=== PATIENT | female | born 1990 | race Two or more races ===

== ENCOUNTER 2019-05-10 12:33 | Emergency (ER) | payer OTHER ==
[~2019-05-10] VITALS: Ht 152.4 cm; Wt 86.2 kg
[~2019-05-10 12:33] MED LIST: IRON1 TA1 PO; PRENATAL1 TAB PO; PROGESTERONE50 MG/M1 IM
== END 2019-05-10 19:06 | disposition home or self-care (01) ==
LOC: ER 12:33
DX: N39.8 Other specified disorders of urinary system (principal)

== ENCOUNTER 2019-08-19 16:34 | Inpatient (IN) | payer OTHER ==
[~2019-08-19] VITALS: Ht 152.4 cm; Wt 88.5 kg
[2019-08-20] MEDS ORDERED: METHYLDOPA500 MG PO (09:53)
[2019-08-25] MEDS ORDERED: METOCLOPRAMIDE10 MG PO (09:50)
[2019-08-25] MEDS ORDERED: PROTONIX40 MG PO (09:50)
[2019-09-13] MEDS ORDERED: ALDOMET250 MG/5 M (06:35)
[2019-09-13] MEDS ORDERED: REGLAN5 MG/5 ML (06:35)
[2019-09-13] MEDS ORDERED: PROTONIX20 MG (06:35)
[2019-09-13] MEDS ORDERED: PRENATA CHEWAB1 EACH (06:36)
== END 2019-08-25 10:16 | disposition home or self-care (01) | DRG 833 ==
LOC: ER 16:34 → OB/GYN 22:19
PROVIDERS: ADMIT Obstetrics & Gynecology; ATTEND Obstetrics & Gynecology
PROC: BW40ZZZ Ultrasonography of Abdomen (ICD-10-PCS; 2019-08-19)
PROC: BW30ZZZ Magnetic Resonance Imaging (MRI) of Abdomen (ICD-10-PCS; principal; 2019-08-21)
DX: O26.891 Other specified pregnancy related conditions, first trimester (principal); K21.9 Gastro-esophageal reflux disease without esophagitis; R10.11 Right upper quadrant pain; Z3A.11 11 weeks gestation of pregnancy
CPT/HCPCS: 74185

== ENCOUNTER 2019-09-13 09:35 | Day surgery (SDC) | payer OTHER ==
[~2019-09-13] VITALS: Ht 152.4 cm; Wt 86.2 kg
[~2019-09-13 09:35] MED LIST changes: +ALDOMET250 MG/5 M; +METHYLDOPA500 MG PO; +METOCLOPRAMIDE10 MG PO; +PRENATA CHEWAB1 EACH; +PROTONIX20 MG; +PROTONIX40 MG PO; +REGLAN5 MG/5 ML
[2019-09-13] MEDS ORDERED: MORGIDOX100 MG PO (11:21)
[2019-09-13] MEDS ORDERED: NAPROXEN500 MG PO (11:22)
[2019-09-13] MEDS ORDERED: MAXFE CAPLET1 EACH PO (11:48)
== END 2019-09-13 13:00 | disposition home or self-care (01) ==
LOC: O/R 09:35 → CIR.AMB 09:35 → ER 09:35 → CIR.AMB 13:00 → O/R 14:00
PROVIDERS: ATTEND General Practice
DX: O03.4 Incomplete spontaneous abortion without complication (principal)

== ENCOUNTER → 2020-01-09 10:30 | Outpatient (CLI) | payer OTHER ==
[~2020-01-09 10:30] MED LIST changes: +MAXFE CAPLET1 EACH PO; +MORGIDOX100 MG PO; +NAPROXEN500 MG PO
== END | disposition home or self-care (01) ==
LOC: LAB 10:30
PROVIDERS: ATTEND Internal Medicine Hematology & Oncology
DX: D50.8 Other iron deficiency anemias (principal); D50.0 Iron deficiency anemia secondary to blood loss (chronic); I10 Essential (primary) hypertension; D68.8 Other specified coagulation defects; D68.0 Von Willebrand disease; D47.3 Essential (hemorrhagic) thrombocythemia

== ENCOUNTER 2020-03-13 21:20 | Emergency (ER) | payer OTHER ==
[~2020-03-13] VITALS: Ht 152.4 cm; Wt 86.2 kg
[2020-03-13] MEDS ORDERED: AMLODIPINE BESYL5 MG PO (21:41)
== END 2020-03-14 03:41 | disposition home or self-care (01) ==
LOC: ER 21:20
DX: O20.8 Other hemorrhage in early pregnancy (principal); Z3A.01 Less than 8 weeks gestation of pregnancy

== ENCOUNTER 2020-05-10 19:32 | Emergency (ER) | payer OTHER ==
[~2020-05-10] VITALS: Ht 152.4 cm; Wt 89.4 kg
[~2020-05-10 19:32] MED LIST changes: +AMLODIPINE BESYL5 MG PO
[2020-05-10] MEDS ORDERED: DESMOPRESS10 MCG/0.2 (19:54)
== END 2020-05-10 22:04 | disposition home or self-care (01) ==
LOC: ER 19:32
DX: R00.2 Palpitations (principal)

== ENCOUNTER 2020-09-03 21:45 | Emergency (ER) | payer OTHER ==
[~2020-09-03] VITALS: Ht 152.4 cm; Wt 81.6 kg
[~2020-09-03 21:45] MED LIST changes: +DESMOPRESS10 MCG/0.2
[2020-09-03] MEDS ORDERED: PRENATALES (22:16)
== END 2020-09-04 01:01 | disposition home or self-care (01) ==
LOC: ER 21:45
DX: O23.41 Unspecified infection of urinary tract in pregnancy, first trimester (principal); Z3A.01 Less than 8 weeks gestation of pregnancy

== ENCOUNTER 2020-10-03 16:29 | Emergency (ER) | payer OTHER ==
[~2020-10-03] VITALS: Ht 152.4 cm; Wt 79.4 kg
[~2020-10-03 16:29] MED LIST changes: +PRENATALES
[2020-10-03] MEDS ORDERED: PEPCID AC20 MG (16:56)
[2020-10-03] MEDS ORDERED: ALDOMET250 MG/5 M (16:56)
[2020-10-03] MEDS ORDERED: DHA100 MG (16:56)
== END 2020-10-03 23:57 | disposition home or self-care (01) ==
LOC: ER 16:29
DX: B34.9 Viral infection, unspecified (principal); Z11.52 Encounter for screening for COVID-19

== ENCOUNTER 2020-11-23 08:37 | Outpatient (CLI) | payer OTHER ==
[~2020-11-23 08:37] MED LIST changes: +DHA100 MG; +PEPCID AC20 MG
== END 2020-11-23 10:00 | disposition home or self-care (01) ==
LOC: PRENATAL 08:37
PROVIDERS: ATTEND Obstetrics & Gynecology Maternal & Fetal Medicine
DX: O26.842 Uterine size-date discrepancy, second trimester (principal); O10.012 Pre-existing essential hypertension complicating pregnancy, second trimester; O99.342 Other mental disorders complicating pregnancy, second trimester; O34.42 Maternal care for other abnormalities of cervix, second trimester; Z36.89 Encounter for other specified antenatal screening; Z3A.15 15 weeks gestation of pregnancy

== ENCOUNTER 2020-11-28 23:48 | Emergency (ER) | payer OTHER ==
[~2020-11-28] VITALS: Ht 152.4 cm; Wt 81.6 kg
[2020-11-28] MEDS ORDERED: NIFEDIPINE20 MG PO (23:53)
[2020-11-29] MEDS ORDERED: ACETAMINOPHEN650 M2 PO (08:01)
== END 2020-11-29 08:28 | disposition home or self-care (01) ==
LOC: ER 23:48
DX: N93.9 Abnormal uterine and vaginal bleeding, unspecified (principal); Z3A.22 22 weeks gestation of pregnancy

== ENCOUNTER 2020-12-08 14:28 | Outpatient (CLI) | payer OTHER ==
[~2020-12-08 14:28] MED LIST changes: +ACETAMINOPHEN650 M2 PO; +NIFEDIPINE20 MG PO
== END 2020-12-08 15:41 | disposition home or self-care (01) ==
LOC: PRENATAL 14:28
PROVIDERS: ATTEND Obstetrics & Gynecology Maternal & Fetal Medicine
DX: O26.872 Cervical shortening, second trimester (principal); O10.012 Pre-existing essential hypertension complicating pregnancy, second trimester; O99.342 Other mental disorders complicating pregnancy, second trimester; Z36.89 Encounter for other specified antenatal screening; Z3A.18 18 weeks gestation of pregnancy

== ENCOUNTER 2020-12-16 22:40 | Inpatient (IN) | payer OTHER ==
[~2020-12-16] VITALS: Ht 152.4 cm; Wt 81.6 kg
[2020-12-17] MEDS ORDERED: CHILDREN'S ASPI81 MG (00:24)
[2020-12-17] MEDS ORDERED: ADALAT CC30 MG (00:24)
[2020-12-19] MEDS ORDERED: PROGESTERONE200 MG (11:23)
[2020-12-19] MEDS ORDERED: FAMOTIDINE20 MG (11:23)
[2020-12-19] MEDS ORDERED: NIFEDIPINE ER30 M1 (11:23)
[2020-12-19] MEDS ORDERED: PRENATAL + DHA1 EAC1 PO (11:24)
[2020-12-19] MEDS ORDERED: LABETALOL HCL100 MG (11:24)
[2020-12-21] MEDS ORDERED: CODE1TAB37 PO (09:31)
[2020-12-21] MEDS ORDERED: AMOX1TAB5 PO (09:32)
== END 2020-12-21 11:29 | disposition home or self-care (01) | DRG 796 ==
LOC: LDR 22:40 → O/R 12-20 19:52 → OB/GYN 12-20 21:58
PROVIDERS: Obstetrics & Gynecology; ADMIT Student in an Organized Health Care Education/Training Program; ATTEND Student in an Organized Health Care Education/Training Program
PROC: BY4CZZZ Ultrasonography of Second Trimester, Single Fetus (ICD-10-PCS; 2020-12-19)
PROC: 10D17ZZ Extraction of Products of Conception, Retained, Via Natural or Artificial Opening (ICD-10-PCS; 2020-12-20)
PROC: 10E0XZZ Delivery of Products of Conception, External Approach (ICD-10-PCS; principal; 2020-12-20 19:00)
DX: O42.112 Preterm premature rupture of membranes, onset of labor more than 24 hours following rupture, second trimester (principal); O41.1220 Chorioamnionitis, second trimester, not applicable or unspecified; Z37.1 Single stillbirth; O10.012 Pre-existing essential hypertension complicating pregnancy, second trimester; O72.0 Third-stage hemorrhage; O26.872 Cervical shortening, second trimester; O03.4 Incomplete spontaneous abortion without complication; Z3A.22 22 weeks gestation of pregnancy

== ENCOUNTER 2021-07-03 13:14 | Emergency (ER) | payer OTHER ==
[~2021-07-03] VITALS: Ht 152.4 cm; Wt 72.6 kg
[~2021-07-03 13:14] MED LIST changes: +ADALAT CC30 MG; +AMOX1TAB5 PO; +CHILDREN'S ASPI81 MG; +CODE1TAB37 PO; +FAMOTIDINE20 MG; +LABETALOL HCL100 MG; +NIFEDIPINE ER30 M1; +PRENATAL + DHA1 EAC1 PO; +PROGESTERONE200 MG
[2021-07-03] MEDS ORDERED: KETO10TA2 PO (17:49)
== END 2021-07-03 18:35 | disposition home or self-care (01) ==
LOC: ER 13:14
DX: M79.671 Pain in right foot (principal)

== ENCOUNTER 2022-04-13 11:37 | Outpatient (CLI) | payer OTHER ==
[~2022-04-13 11:37] MED LIST changes: +ASA81 MG PO; +KETO10TA2 PO; +LABETALOL HCL100 MG PO; +PEPCID AC20 MG PO; +PRENA1 TRUE CO1 EACH PO
== END 2022-04-13 13:03 | disposition home or self-care (01) ==
LOC: PRENATAL 11:37
PROVIDERS: ATTEND Obstetrics & Gynecology Maternal & Fetal Medicine
DX: Z76.1 Encounter for health supervision and care of foundling (principal)

== ENCOUNTER 2022-04-13 13:18 | Outpatient (CLI) | payer OTHER | END 2022-04-13 13:23 | disposition home or self-care (01) | LOC: LAB 13:18 | PROVIDERS: ATTEND Obstetrics & Gynecology Maternal & Fetal Medicine | DX: O26.879 Cervical shortening, unspecified trimester (principal); O09.219 Supervision of pregnancy with history of pre-term labor, unspecified trimester ==

== ENCOUNTER 2022-04-21 15:55 | Emergency (ER) | payer OTHER ==
[~2022-04-21] VITALS: Ht 152.4 cm; Wt 79.8 kg
== END 2022-04-21 18:25 | disposition home or self-care (01) ==
LOC: ER 15:55
DX: N39.0 Urinary tract infection, site not specified (principal)

== ENCOUNTER 2022-05-07 08:12 | Outpatient (CLI) | payer OTHER | END 2022-05-07 09:25 | disposition home or self-care (01) | LOC: PRENATAL 08:12 | PROVIDERS: ATTEND Obstetrics & Gynecology Maternal & Fetal Medicine | DX: O36.80X0 Pregnancy with inconclusive fetal viability, not applicable or unspecified (principal); O09.219 Supervision of pregnancy with history of pre-term labor, unspecified trimester; O10.019 Pre-existing essential hypertension complicating pregnancy, unspecified trimester; O34.30 Maternal care for cervical incompetence, unspecified trimester; Z3A.11 11 weeks gestation of pregnancy ==

== ENCOUNTER 2022-05-22 10:00 | Day surgery (SDC) | payer OTHER | END 2022-05-22 20:05 | disposition home or self-care (01) | LOC: CIR.AMB 10:00 | PROVIDERS: ATTEND Obstetrics & Gynecology Maternal & Fetal Medicine | DX: O34.31 Maternal care for cervical incompetence, first trimester (principal); Z3A.13 13 weeks gestation of pregnancy; I10 Essential (primary) hypertension; Z87.891 Personal history of nicotine dependence; Z20.822 Contact with and (suspected) exposure to COVID-19 ==

== ENCOUNTER 2022-07-09 08:15 | Outpatient (CLI) | payer OTHER | END 2022-07-09 09:25 | disposition home or self-care (01) | LOC: PRENATAL 08:15 | PROVIDERS: ATTEND Obstetrics & Gynecology Maternal & Fetal Medicine | DX: O35.3XX0 Maternal care for (suspected) damage to fetus from viral disease in mother, not applicable or unspecified (principal); O35.9XX0 Maternal care for (suspected) fetal abnormality and damage, unspecified, not applicable or unspecified; O10.019 Pre-existing essential hypertension complicating pregnancy, unspecified trimester; O09.219 Supervision of pregnancy with history of pre-term labor, unspecified trimester; O34.10 Maternal care for benign tumor of corpus uteri, unspecified trimester; Z3A.20 20 weeks gestation of pregnancy ==

== ENCOUNTER 2022-07-25 21:08 | Inpatient (IN) | payer OTHER ==
[~2022-07-25] VITALS: Ht 152.4 cm; Wt 83.9 kg
[~2022-07-25 21:08] MED LIST changes: -LABETALOL HCL100 MG
[2022-07-29] MEDS ORDERED: LABETALOL HCL200 MG PO (08:33)
[2022-07-29] MEDS ORDERED: MACRODANTIN100 M1 PO (08:34)
[2022-07-29] MEDS ORDERED: POM (MEDICAMENTO EN VAG (08:34)
== END 2022-07-29 09:22 | disposition home or self-care (01) | DRG 832 ==
LOC: OB/GYN 21:08 → LDR 21:08 → OB/GYN 07-26 10:14
PROVIDERS: ADMIT Obstetrics & Gynecology; ATTEND Obstetrics & Gynecology
PROC: BY4CZZZ Ultrasonography of Second Trimester, Single Fetus (ICD-10-PCS; principal; 2022-07-25)
PROC: 4A1HXCZ Monitoring of Products of Conception, Cardiac Rate, External Approach (ICD-10-PCS; 2022-07-25)
PROC: BU4CZZZ Ultrasonography of Uterus and Ovaries (ICD-10-PCS; 2022-07-25)
PROC: BY4CZZZ Ultrasonography of Second Trimester, Single Fetus (ICD-10-PCS; 2022-07-26)
PROC: BU4CZZZ Ultrasonography of Uterus and Ovaries (ICD-10-PCS; 2022-07-26)
DX: O34.32 Maternal care for cervical incompetence, second trimester (principal); O10.912 Unspecified pre-existing hypertension complicating pregnancy, second trimester; O47.02 False labor before 37 completed weeks of gestation, second trimester; Z3A.23 23 weeks gestation of pregnancy; Z20.822 Contact with and (suspected) exposure to COVID-19

== ENCOUNTER 2022-08-31 08:34 | Outpatient (CLI) | payer OTHER ==
[~2022-08-31 08:34] MED LIST changes: +LABETALOL HCL200 MG PO; +MACRODANTIN100 M1 PO; +POM (MEDICAMENTO EN VAG
== END 2022-08-31 09:45 | disposition home or self-care (01) ==
LOC: PRENATAL 08:34
PROVIDERS: ATTEND Obstetrics & Gynecology Maternal & Fetal Medicine
DX: O26.849 Uterine size-date discrepancy, unspecified trimester (principal); O34.30 Maternal care for cervical incompetence, unspecified trimester; O10.019 Pre-existing essential hypertension complicating pregnancy, unspecified trimester; O09.219 Supervision of pregnancy with history of pre-term labor, unspecified trimester; Z3A.28 28 weeks gestation of pregnancy

== ENCOUNTER 2022-09-25 20:46 | Inpatient (IN) | payer OTHER ==
[~2022-09-25] VITALS: Ht 152.4 cm; Wt 85.7 kg
[2022-09-25] MEDS ORDERED: VAZALORE81 MG PO (21:50)
== END 2022-09-28 11:15 | disposition home or self-care (01) | DRG 832 ==
LOC: OBS/DEL 20:46 → LDR 22:55 → OB/GYN 09-26 15:10
PROVIDERS: ADMIT Obstetrics & Gynecology; ATTEND Obstetrics & Gynecology
PROC: 4A1HXCZ Monitoring of Products of Conception, Cardiac Rate, External Approach (ICD-10-PCS; principal; 2022-09-25)
DX: O34.32 Maternal care for cervical incompetence, second trimester (principal); O10.912 Unspecified pre-existing hypertension complicating pregnancy, second trimester; O47.02 False labor before 37 completed weeks of gestation, second trimester; Z3A.23 23 weeks gestation of pregnancy; Z20.822 Contact with and (suspected) exposure to COVID-19

== ENCOUNTER 2022-10-01 15:39 | Outpatient (CLI) | payer OTHER ==
[~2022-10-01 15:39] MED LIST changes: +VAZALORE81 MG PO
== END 2022-10-01 16:54 | disposition home or self-care (01) ==
LOC: PRENATAL 15:39
PROVIDERS: ATTEND Obstetrics & Gynecology Maternal & Fetal Medicine
DX: O26.849 Uterine size-date discrepancy, unspecified trimester (principal); O36.8199 Decreased fetal movements, unspecified trimester, other fetus; O10.019 Pre-existing essential hypertension complicating pregnancy, unspecified trimester; O09.219 Supervision of pregnancy with history of pre-term labor, unspecified trimester; Z3A.32 32 weeks gestation of pregnancy

== ENCOUNTER 2024-09-01 11:47 | Inpatient (IN) | payer OTHER ==
[~2024-09-01] VITALS: Ht 152.4 cm; Wt 77.1 kg
[~2024-09-01 11:47] MED LIST changes: +IBUPROFEN600 MG PO
[2024-09-01] MEDS ORDERED: AMLODIPINE-OLM1 EAC2 PO (12:33)
--- NOTE | 2024-09-01 12:34 | NUR ---
SE RECIBE PTE ALERTA Y ORIENTADA X3. PTE REFIERE DOLOR ABDOMINAL EN EL LADO DERECHO QUE IRRADIA HACIA LA ESPALDA. SE LAQUITA S/V Y SE UBICA.
[2024-09-01] MEDS ORDERED: 0.9 % SODIUM CHLORIDE 1,000 ML IV ONE ×2 (14:30→22:45)
[2024-09-01] MEDS ORDERED: ONDANSETRON HCL 2 MG/ML VIAL IV ONE (14:30)
[2024-09-01] MEDS ORDERED: FAMOTIDINE/PF 20 MG/2 ML VIAL IV ONE (14:30)
[2024-09-01] MEDS ORDERED: ALBUTEROL SULFATE 0.5 ML/2.5 MG SOLUTION IH SCH (14:45)
[2024-09-01] MEDS ORDERED: METHYLPREDNISOLONE SOD SUCC 125 MG VIAL IV ONE (14:45)
[2024-09-01] MEDS ORDERED: METHYLPREDNISOLONE SOD SUCC 125 MG VIAL ONE (15:26)
[2024-09-01] MEDS ORDERED: ONDANSETRON HCL 2 MG/ML VIAL ONE (15:26)
[2024-09-01] MEDS ORDERED: FAMOTIDINE/PF 20 MG/2 ML VIAL ONE (15:27)
--- NOTE | 2024-09-01 15:54 | NUR ---
S EREALIZA LAB Y SE ADMINISTRA TX CAL ORDEN MEDICA BAJO MEDIDAS ASEPTICAS. SE ORIENTA PTE QUIEN REFIERE ENTENDER Y ACEPTAR
[2024-09-01 16:01] LABS: BASO % 0.2 % (0.1-1.2); EOS # 0.04 (0.04-0.54); EOS % 0.2 % (0.7-7.0); HEMATOCRIT 39.4 % (34.1-44.9); HEMOGLOBIN 13.5 g/dL (11.2-15.7); LYMPH # 1.51 (1.18-3.74); LYMPH % 9.1 % (19.3-53.1); MEAN CORPUSCULAR HEMOGLOBIN 28.7 pg (25.6-32.2); MONO # 0.62 (0.24-0.82); MONO % 3.7 % (4.7-12.5); NEUT # 14.35 (1.56-6.13); NEUT % 86.6 % (34.0-71.1); PLATELET COUNT 358 K/uL (163-369); RED CELL DISTRIBUTION WIDTH 12.5 % (11.6-14.4)
[2024-09-01 16:25] LABS: URINE APPEARANCE Clear; URINE BILIRRUBIN Negative (NEGATIVE); URINE BLOOD Negative; URINE COLOR Yellow; URINE GLUCOSE Negative (NEGATIVE); URINE LEUKOCYTE Trace; URINE NITRATE Negative; URINE PROTEIN Negative (NEGATIVE); URINE UROBILINOGEN 0.2 E.U./dl
[2024-09-01 16:29] LABS: URINE EPITHELIAL CELLS 3.7 uL (0.0-38.8); URINE RBC 34.4 uL (0.0-20.8)
[2024-09-01 16:38] LABS: ALBUMIN 3.7 gm/dL (3.4-5.0); BILIRUBIN TOTAL 0.65 mg/dL (0.3-1.2); CREATININE SERUM 0.95 mg/dL (0.55-1.02); GFR 67.34; GLOBULINA 3.7 G/DL (2.4-3.5); POTASSIUM 3.54 mEq/L (3.5-5.1); TOTAL PROTEIN 7.4 gm/dL (6.4-8.2)
[2024-09-01 16:44] LABS: URINE KETONE 80 (NEGATIVE)
[2024-09-01] MEDS ORDERED: KETOROLAC TROMETHAMINE 30 MG VIAL IV ONE (17:30)
[2024-09-01] MEDS ORDERED: KETOROLAC TROMETHAMINE 30 MG VIAL ONE (17:31)
[2024-09-01 18:31] LABS: COVID-19 AG NEGATIVE (NEGATIVE); INFLUENZA A AG NEGATIVE (NEGATIVE); INFLUENZA B AG NEGATIVE (NEGATIVE)
[2024-09-01] MEDS ORDERED: MORPHINE SULFATE 4 MG/ML VIAL IV ONE (21:00)
[2024-09-01] MEDS ORDERED: PIPERACILLIN/TAZOBACTAM SODIUM 3.375 GM VIAL IV ONE ×2 (21:00→21:14)
--- NOTE | 2024-09-01 21:58 | NUR ---
SE ORIENTA A PTE SOBRE TX MEDICO EL MISMO INDICA ENTENDER Y ACEPTAR, SE LAQUITA MUESTRAS DE LAB MAS SE ADMINISTRAN MEDICAMENTOS CAL ORDEN MEDICA.
[2024-09-01 22:01] LABS: BASO % 0.1 % (0.1-1.2); HEMATOCRIT 37.6 % (34.1-44.9); LYMPH # 0.58 (1.18-3.74); LYMPH % 3.9 % (19.3-53.1); MEAN CORPUSCULAR HEMOGLOBIN 28.8 pg (25.6-32.2); MONO # 0.08 (0.24-0.82); MONO % 0.5 % (4.7-12.5); NEUT % 95.1 % (34.0-71.1); PLATELET COUNT 358 K/uL (163-369); RED BLOOD COUNT 4.52 M/uL (3.93-5.22); RED CELL DISTRIBUTION WIDTH 12.6 % (11.6-14.4)
[2024-09-02] MEDS ORDERED: MORPHINE SULFATE 4 MG/ML VIAL IV STA (03:49)
[2024-09-02] MEDS ORDERED: PIPERACILLIN/TAZOBACTAM SODIUM 3.375 GM VIAL IV ONE ×2 (04:28→11:19)
--- NOTE | 2024-09-02 04:42 | NUR ---
PTE ALERTA Y ORIENTADA X3. SE ADMINSITRA MEDICAMENTO CAL ORDEN MEDICA Y BAJO MEDIDAS ASEPTIAS.
[2024-09-02] MEDS ORDERED: PIPERACILLIN/TAZOBACTAM SODIUM 3.375 GM VIAL IV SCH (06:00)
[2024-09-02 06:21] LABS: BASO % 0.1 % (0.1-1.2); HEMATOCRIT 39.3 % (34.1-44.9); HEMOGLOBIN 13.3 g/dL (11.2-15.7); MEAN CORPUSCULAR HEMOGLOBIN 28.9 pg (25.6-32.2); MONO # 0.39 (0.24-0.82); NEUT # 11.44 (1.56-6.13); NEUT % 89.4 % (34.0-71.1); PLATELET COUNT 346 K/uL (163-369); RED BLOOD COUNT 4.61 M/uL (3.93-5.22); RED CELL DISTRIBUTION WIDTH 12.6 % (11.6-14.4)
[2024-09-02] MEDS ORDERED: 0.9 % SODIUM CHLORIDE 1,000 ML IV SCH (07:30)
[2024-09-02] MEDS ORDERED: ONDANSETRON HCL 4 MG in 0.9 % SODIUM CHLORIDE 50 ML IV PRN (07:30)
[2024-09-02] MEDS ORDERED: MORPHINE SULFATE 4 MG/ML VIAL IV PRN (07:30)
[2024-09-02] MEDS ORDERED: MORPHINE SULFATE 4 MG/ML CARTRIDGE IV PRN (08:15)
[2024-09-02] MEDS ORDERED: ENALAPRILAT DIHYDRATE 1.25 MG/ML VIAL IV ONE (12:54)
[2024-09-02] MEDS ORDERED: MORPHINE SULFATE 4 MG/ML VIAL IV ONE (14:15)
[2024-09-02 17:41] VITALS: BP 122/82
[2024-09-03 02:20] VITALS: BP 123/76; O2SAT 97
[2024-09-03 09:07] VITALS: BP 128/86; O2SAT 98
== END 2024-09-03 15:46 | disposition home or self-care (01) | DRG 399 ==
LOC: ER 11:53 → O/R 09-02 07:38 → MEDI 09-02 07:38 → SEC-K 09-02 07:38 → O/R 09-02 10:43 → MEDI 09-02 15:31
PROVIDERS: Emergency Medicine; General Practice; Specialist; ADMIT Internal Medicine; ATTEND Internal Medicine
PROC: BW21Y0Z Computerized Tomography (CT Scan) of Abdomen and Pelvis using Other Contrast, Unenhanced and Enhanced (ICD-10-PCS; 2024-09-01)
PROC: 0DTJ4ZZ Resection of Appendix, Percutaneous Endoscopic Approach (ICD-10-PCS; principal; 2024-09-02 12:00)
DX: K36 Other appendicitis (principal); R10.31 Right lower quadrant pain